=== PATIENT | female | born 1945 | race Caucasian/White ===

== ENCOUNTER → 2017-11-30 | Outpatient (CLI) | payer MEDICARE ==
[2013-09-02 17:09] VITALS: BP 153/79
[~2017-11-30] MED LIST: ASPI-482 PO; BACL20TA PO; CIPR250T PO; CYCL10TA2 PO; DILT240C11 PO; FLUO10CA7 PO; GABA600T2 PO; HYDR-2758 PO; HYDR-965 PO
--- NOTE | 2017-11-30 12:18 | KCIC ---
CHEST PA LATERAL dated 11/30/2017 12:00 AM. Comparison: None. Clinical Indication: Chronic cough, COUGH FOR 2 MONTHS Findings: PA and lateral views of the chest were obtained. Heart and mediastinal contours within normal limits. Lungs are clear without focal consolidation. Vascular interstitium within normal limits. No pleural effusion or pneumothorax. Impression: No acute radiographic abnormality. Electronically signed by: Pravin Bailon MD (11/30/2017 12:15 PM) [id number]
== END | disposition home or self-care (01) ==
LOC: KCIC 11:36
PROVIDERS: ATTEND Family Medicine
DX: R05 Cough (principal)
CPT/HCPCS: 71046